=== PATIENT | female | born 1985 | race Asian ===

== ENCOUNTER 2016-10-05 10:58 | Inpatient (IN) | payer BC ==
[2016-10-05] MEDS ORDERED: Ondansetron 4 MG/2 ML SDV IVPUSH PRN ×2 (11:53→17:45)
[2016-10-05] MEDS ORDERED: Sodium Chloride 0.9% 10 ML Syringe FLUSH PRN (11:53)
[2016-10-05] MEDS ORDERED: Nalbuphine 20 MG/1 ML Amp IVPUSH PRN (11:53)
[2016-10-05] MEDS ORDERED: Oxytocin/Lactated Ringers 10 UNIT/1,000 ML BAG IV SCH ×2 (12:00→16:15)
[2016-10-05] MEDS: Lactated Ringers 1,000 ML IV SCH ×3 (16:33→19:48)
--- NOTE | 2016-10-05 17:31 | PCM.PREANE ---
Preanesthetic Assessment - Procedure Proposed Procedure: Laboring Epidural - Anesthesia/Transfusion/Family Hx Anesthesia History: No Prior Anesthesia (wisdom teeth extraction) Type of Anesthesia Reaction: Unknown Family History of Anesthesia Reaction: No Transfusion History: No Prior Transfusion(s) Type of Transfusion Reactions: Reports: Unknown Intubation History: Unknown - Review of Systems General: No Symptoms Pulmonary: No Symptoms Cardiovascular: No Symptoms Gastrointestinal: No symptoms Neurological: No Symptoms Other: Reports: None - Physical Assessment NPO Status Date: 10/05/16 NPO Status Time: 17:00 O2 Sat by Pulse Oximetry: 100 Respiratory Rate: 16 Vital Signs: Last Vital Signs Temp 36.7 C 10/05/16 11:54 Pulse 78 10/05/16 11:54 Resp 16 10/05/16 11:54 BP 114/75 10/05/16 11:54 Pulse Ox 100 10/05/16 11:54 Height: 1.52 m Weight: 66.678 kg ASA Class: 2 Mental Status: Alert & Oriented x3 Airway Class: Mallampati = 2 Dentition: Reports: Normal Dentition Thyro-Mental Finger Breadths: 3 Mouth Opening Finger Breadths: 3 ROM/Head Extension: Full Lungs: Clear to auscultation, Normal respiratory effort Cardiovascular: Regular Rate, Regular Rhythm - Lab Values: Laboratory Last Values WBC 10.76 K/mm3 (3.98-10.04) H 10/05/16 12:15 RBC 4.48 M/mm3 (3.98-5.22) 10/05/16 12:15 Hgb 13.2 gm/L (11.2-15.7) 10/05/16 12:15 Hct 39.4 % (34.1-44.9) 10/05/16 12:15 MCV 87.9 fl (79.4-94.8) 10/05/16 12:15 MCH 29.5 pg (25.6-32.2) 10/05/16 12:15 MCHC 33.5 g/dl (32.2-35.5) 10/05/16 12:15 RDW Std Deviation 58.7 fL (36.4-46.3) H 10/05/16 12:15 Plt Count 114 K/mm3 (182-369) L 10/05/16 12:15 MPV 11.2 fl (9.4-12.3) 10/05/16 12:15 Neut % (Auto) 85.8 % (34.0-71.1) H 10/05/16 12:15 Lymph % (Auto) 7.9 % (19.3-51.7) L 10/05/16 12:15 [place] % (Auto) 5.8 % (4.7-12.5) 10/05/16 12:15 Eos % (Auto) 0.2 (0.7-5.8) L 10/05/16 12:15 Baso % (Auto) 0.1 % (0.1-1.2) 10/05/16 12:15 Neut # (Auto) 9.24 K/mm3 (1.56-6.13) H 10/05/16 12:15 Lymph # (Auto) 0.85 K/mm3 (1.18-3.74) L 10/05/16 12:15 [place] # (Auto) 0.62 K/mm3 (0.24-0.36) H 10/05/16 12:15 Eos # (Auto) 0.02 K/mm3 (0.04-0.36) L 10/05/16 12:15 Baso # (Auto) 0.01 K/mm3 (0.01-0.08) 10/05/16 12:15 Manual Slide Review Normal smear 10/05/16 12:15 - Allergies Allergies/Adverse Reactions: Allergies Allergy/AdvReac Type Severity Reaction Status Date / Time sulfamethoxazole Allergy Rash Verified 10/05/16 12:15 [From Bactrim] trimethoprim [From Bactrim] Allergy Rash Verified 10/05/16 12:15 - Blood Blood Available: No Product(s) Available: None - Anesthesia Plan Pre-Op Medication Ordered: None - Acknowledgements Anesthesia Type Planned: Epidural Pt an Appropriate Candidate for the Planned Anesthesia: Yes Alternatives and Risks of Anesthesia Discussed w Pt/Guardian: Yes Pt/Guardian Understands and Agrees with Anesthesia Plan: Yes 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: - SUBSTANCE USE Smoking Status *Q: Never Smoker Second Hand Smoke Exposure: No Recreational Drug Use History: No - CURRENT (IN HOUSE) MEDS Current Meds: Current Medications Lactated Ringer's (Ringers, Lactated) 1,000 mls @ 100 mls/hr IV ASDIRECTED JOHNNIE Last Admin: 10/05/16 16:34 Dose: 100 mls/hr Oxytocin/Lactated Ringer's (Pitocin In Lr 10 Units/1,000 Ml) 10 unit in 1,000 mls @ 500 mls/hr IV TITRATE JOHNNIE Oxytocin/Lactated Ringer's (Pitocin In Lr 10 Units/1,000 Ml) 10 unit in 1,000 mls @ 12 mls/hr IV TITRATE JOHNNIE; 2 MUNITS/MIN PRN Reason: Protocol Last Titration: 10/05/16 17:11 Dose: 4 munits/min, 24 mls/hr Nalbuphine HCl (Nubain) 10 mg IVPUSH Q2H PRN PRN Reason: Pain (moderate 4-6) Ondansetron HCl (Zofran) 4 mg IVPUSH Q4H PRN PRN Reason: Nausea/Vomiting Sodium Chloride (Saline Flush) 10 ml FLUSH ASDIRECTED PRN PRN Reason: Keep Vein Open
[2016-10-05] MEDS ORDERED: diphenhydrAMINE 50 MG/ML SDV IVPUSH PRN (17:45)
[2016-10-05] MEDS ORDERED: fentaNYL 100 MCG/2 ML SDV EPIDUR PRN (17:45)
[2016-10-05] MEDS ORDERED: ePHEDrine 50 MG/ML SDV IVPUSH PRN (17:45)
--- NOTE | 2016-10-05 19:52 | PCM.LDHP ---
L&D History of Present Illness - General Date of Service: 10/05/16 Admit Problem/Dx: Patient Status Order with Admit Dx/Problem 10/05/16 11:54 Patient Status [ADT] Routine Admission Diagnosis/Problem Admission Diagnosis/Problem Source of Information: Patient History Limitations: Reports: No Limitations - History of Present Illness Introduction:: 31 year old at 42w1d presents with regular painful uterine contractions and bloody show. No cervical change but given advanced gestational age and patient's prior reluctance to induction and currently not scheduled for induction decision made to keep for augmentation of labor. PNC with Dr. Ruiz. No other complications. 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: Social & Family History - Family History Family Medical History: Noncontributory - Tobacco Use Smoking Status *Q: Never Smoker Second Hand Smoke Exposure: No - Caffeine Use Caffeine Use: Reports: None - Recreational Drug Use Recreational Drug Use: No H&P Review of Systems - Review of Systems: Review Of Systems: See Below General: Reports: No Symptoms HEENT: Reports: No Symptoms Pulmonary: Reports: No Symptoms Cardiovascular: Reports: No Symptoms Gastrointestinal: Reports: No Symptoms Genitourinary: Reports: No Symptoms Musculoskeletal: Reports: No Symptoms Skin: Reports: No Symptoms Psychiatric: Reports: No Symptoms Neurological: Reports: No Symptoms Hematologic/Lymphatic: Reports: No Symptoms Immunologic: Reports: No Symptoms L&D Exam - Exam Exam: See Below - Vital Signs Vital Signs: Last Vital Signs Temp 36.7 C 10/05/16 11:54 Pulse 78 10/05/16 11:54 Resp 16 10/05/16 17:45 BP 114/75 10/05/16 11:54 Pulse Ox 100 10/05/16 17:45 Weight: 66.678 kg - OB Specific Contraction Intensity: Mild to Moderate Heart Tones per Min: 140 Heart Rate (FHR) Variability: Moderate (6-25 bmp) - Queen Score Queen Score Cervix Position: Midposition Queen Score Consistency: Medium Queen Score Effacement: 0-30% Queen Score Dilation: 1-2 cm Queen Score 's Station: -3 Queen Score Total: 3 - Exam General: Alert, Oriented HEENT: Conjunctiva Clear Neck: Supple Lungs: Clear to Auscultation, Normal Respiratory Effort Cardiovascular: Regular Rate, Regular Rhythm Abdomen: Normal Bowel Sounds, Soft Genitourinary: Normal external exam Extremities: Normal Inspection Skin: Warm, Dry, Intact Neurological: Cranial Nerves Intact, Reflexes Equal Bilateral - Patient Data Lab Results last 24 hrs: Laboratory Results - last 24 hr 10/05/16 Range/Units 12:15 WBC 10.76 H (3.98-10.04) K/mm3 RBC 4.48 (3.98-5.22) M/mm3 Hgb 13.2 (11.2-15.7) gm/L Hct 39.4 (34.1-44.9) % MCV 87.9 (79.4-94.8) fl MCH 29.5 (25.6-32.2) pg MCHC 33.5 (32.2-35.5) g/dl RDW Std Deviation 58.7 H (36.4-46.3) fL Plt Count 114 L (182-369) K/mm3 MPV 11.2 (9.4-12.3) fl Neut % (Auto) 85.8 H (34.0-71.1) % Lymph % (Auto) 7.9 L (19.3-51.7) % [place] % (Auto) 5.8 (4.7-12.5) % Eos % (Auto) 0.2 L (0.7-5.8) Baso % (Auto) 0.1 (0.1-1.2) % Neut # (Auto) 9.24 H (1.56-6.13) K/mm3 Lymph # (Auto) 0.85 L (1.18-3.74) K/mm3 [place] # (Auto) 0.62 H (0.24-0.36) K/mm3 Eos # (Auto) 0.02 L (0.04-0.36) K/mm3 Baso # (Auto) 0.01 (0.01-0.08) K/mm3 Manual Slide Review Normal smear Result Diagrams: 10/05/16 12:15 - Problem List (1) Post-dates SNOMED Code(s): 70721441 ICD Code: O48.0 - POST-TERM Status: Acute Current Visit: Yes Problem List Initiated/Reviewed/Updated: Yes Orders Last 24hrs: Active Orders 24 hr Category Date Time Status Patient Status [ADT] Routine ADT 10/05/16 11:54 Active Activity as Tolerated [RC] PFP Care 10/05/16 11:54 Active Communication Order [RC] ASDIRECTED Care 10/05/16 11:54 Active Heart Tones [RC] ASDIRECTED Care 10/05/16 11:54 Active Notify Provider [RC] PFP Care 10/05/16 11:54 Active Notify Provider [RC] PRN Care 10/05/16 11:54 Active Peripheral IV Care [RC] . DIRECTED Care 10/05/16 11:54 Active Vital Signs [RC] PER UNIT ROUTINE Care 10/05/16 11:54 Active Regular Diet [DIET] Diet 10/05/16 Dinner Active Bupivacaine/fentaNYL/NS [fentaNYL/Bupivacaine/NS 2 MCG- Med 10/05/16 17:45 Active 0.125% 100 ML] 100 ml EPIDUR ASDIRECTED Lactated Ringers [Ringers, Lactated] 1,000 ml Med 10/05/16 12:00 Active IV ASDIRECTED Nalbuphine [Nubain] Med 10/05/16 11:53 Active 10 mg IVPUSH Q2H PRN Ondansetron [Zofran] Med 10/05/16 17:45 Active 4 mg IVPUSH ONETIME PRN Ondansetron [Zofran] Med 10/05/16 11:53 Active 4 mg IVPUSH Q4H PRN Oxytocin/Lactated Ringers [Pitocin in LR 10 Units/1,000 Med 10/05/16 12:00 Active ML] 10 unit in 1,000 ml IV TITRATE Oxytocin/Lactated Ringers [Pitocin in LR 10 Units/1,000 Med 10/05/16 16:15 Active ML] 10 unit in 1,000 ml IV TITRATE Sodium Chloride 0.9% [Saline Flush] Med 10/05/16 11:53 Active 10 ml FLUSH ASDIRECTED PRN diphenhydrAMINE [Benadryl] Med 10/05/16 17:45 Active 25 mg IVPUSH Q6H PRN ePHEDrine [ePHEDrine Sulfate] Med 10/05/16 17:45 Active 5 mg IVPUSH ASDIRECTED PRN fentaNYL [Sublimaze] Med 10/05/16 17:45 Active 100 mcg EPIDUR Q3H PRN Electronic Heart Tones Ext w TOCO [WOMSER] Oth 10/05/16 11:54 Ordered Routine Electronic Heart Tones Internal [WOMSER] Per Unit Oth 10/05/16 11:54 Ordered Routine Peripheral IV Insertion Adult [OM.PC] Routine Oth 10/05/16 11:54 Ordered Resuscitation Status Routine Resus Stat 10/05/16 11:53 Ordered Medication Orders Diphenhydramine HCl (Benadryl) 25 mg IVPUSH Q6H PRN PRN Reason: Pruritis Ephedrine Sulfate (Ephedrine Sulfate) 5 mg IVPUSH ASDIRECTED PRN PRN Reason: Hypotension Fentanyl (Sublimaze) 100 mcg EPIDUR Q3H PRN PRN Reason: Pain Fentanyl/Bupivacaine HCl (Fentanyl/Bupivacaine/Ns 2 Mcg-0.125% 100 Ml) 100 ml EPIDUR ASDIRECTED JOHNNIE Lactated Ringer's (Ringers, Lactated) 1,000 mls @ 100 mls/hr IV ASDIRECTED JOHNNIE Last Admin: 10/05/16 16:34 Dose: 100 mls/hr Infusion: 10/05/16 16:34 Dose: 500 mls/hr Admin: 10/05/16 16:33 Dose: 500 mls/hr Oxytocin/Lactated Ringer's (Pitocin In Lr 10 Units/1,000 Ml) 10 unit in 1,000 mls @ 500 mls/hr IV TITRATE JOHNNIE Oxytocin/Lactated Ringer's (Pitocin In Lr 10 Units/1,000 Ml) 10 unit in 1,000 mls @ 12 mls/hr IV TITRATE JOHNNIE; 2 MUNITS/MIN PRN Reason: Protocol Last Titration: 10/05/16 18:21 Dose: 6 munits/min, 36 mls/hr Titration: 10/05/16 17:11 Dose: 4 munits/min, 24 mls/hr Admin: 10/05/16 16:35 Dose: 2 munits/min, 12 mls/hr Nalbuphine HCl (Nubain) 10 mg IVPUSH Q2H PRN PRN Reason: Pain (moderate 4-6) Ondansetron HCl (Zofran) 4 mg IVPUSH Q4H PRN PRN Reason: Nausea/Vomiting Ondansetron HCl (Zofran) 4 mg IVPUSH ONETIME PRN PRN Reason: Nausea/Vomiting Sodium Chloride (Saline Flush) 10 ml FLUSH ASDIRECTED PRN PRN Reason: Keep Vein Open Assessment/Plan Comment:: 31 year old primigravid with early labor and postdates -Admit -Augment -AROM prn -Anesthesia per patient request.
[2016-10-06] MEDS: Bupivacaine/fentaNYL/NS 100 ML Bag EPIDUR SCH ×3 (00:08→13:03)
[2016-10-06] MEDS ORDERED: Clindamycin Phosphate 900 MG in Sodium Chloride 0.9% 100 ML IV ONE (03:29)
[2016-10-06] MEDS ORDERED: Clindamycin Phosphate 900 MG/6 ML AdvVial ONE (03:41)
[2016-10-06] MEDS ORDERED: Sodium Chloride 0.9% 100 ML ONE (03:41)
[2016-10-06] MEDS: Lactated Ringers 1,000 ML IV SCH ×5 (03:47→12:49)
--- NOTE | 2016-10-06 07:02 | PCM.PNLD ---
Labor Progress Note - VS & Meds Vital Signs: Last Vital Signs Temp 36.7 C 10/05/16 11:54 Pulse 78 10/05/16 11:54 Resp 16 10/05/16 17:45 BP 114/75 10/05/16 11:54 Pulse Ox 100 10/05/16 17:45 Active Medications: Current Medications Diphenhydramine HCl (Benadryl) 25 mg IVPUSH Q6H PRN PRN Reason: Pruritis Ephedrine Sulfate (Ephedrine Sulfate) 5 mg IVPUSH ASDIRECTED PRN PRN Reason: Hypotension Fentanyl (Sublimaze) 100 mcg EPIDUR Q3H PRN PRN Reason: Pain Last Admin: 10/06/16 00:08 Dose: 100 mcg Fentanyl/Bupivacaine HCl (Fentanyl/Bupivacaine/Ns 2 Mcg-0.125% 100 Ml) 100 ml EPIDUR ASDIRECTED JOHNNIE Last Admin: 10/06/16 00:08 Dose: 100 ml Lactated Ringer's (Ringers, Lactated) 1,000 mls @ 100 mls/hr IV ASDIRECTED JOHNNIE Last Admin: 10/06/16 05:00 Dose: 500 mls/hr Oxytocin/Lactated Ringer's (Pitocin In Lr 10 Units/1,000 Ml) 10 unit in 1,000 mls @ 500 mls/hr IV TITRATE JOHNNIE Oxytocin/Lactated Ringer's (Pitocin In Lr 10 Units/1,000 Ml) 10 unit in 1,000 mls @ 12 mls/hr IV TITRATE JOHNNIE; 2 MUNITS/MIN PRN Reason: Protocol Last Titration: 10/06/16 05:58 Dose: 0 munits/min, 0 mls/hr Nalbuphine HCl (Nubain) 10 mg IVPUSH Q2H PRN PRN Reason: Pain (moderate 4-6) Ondansetron HCl (Zofran) 4 mg IVPUSH Q4H PRN PRN Reason: Nausea/Vomiting Ondansetron HCl (Zofran) 4 mg IVPUSH ONETIME PRN PRN Reason: Nausea/Vomiting Sodium Chloride (Saline Flush) 10 ml FLUSH ASDIRECTED PRN PRN Reason: Keep Vein Open Discontinued Medications Clindamycin Phosphate (Cleocin) Confirm Administered Dose 900 mg .ROUTE .STK- MED ONE Stop: 10/06/16 03:42 Last Admin: 10/06/16 03:56 Dose: Not Given Clindamycin Phosphate 900 mg/ (Sodium Chloride) 106 mls @ 100 mls/hr IV ONETIME ONE Stop: 10/06/16 04:32 Last Admin: 10/06/16 03:47 Dose: 100 mls/hr Gentamicin Sulfate 100 mg/ (Sodium Chloride) 102.5 mls @ 200 mls/hr IV ONETIME ONE Stop: 10/06/16 03:58 Last Admin: 10/06/16 03:55 Dose: 200 mls/hr Sodium Chloride (Normal Saline) Confirm Administered Dose 100 mls @ as directed .ROUTE .STK-MED ONE Stop: 10/06/16 03:42 Last Admin: 10/06/16 03:56 Dose: Not Given - Uterine Contractions Contraction Intensity: Mild to Moderate - Monitoring Heart Rate (FHR) Variability: Moderate (6-25 bmp) Decelerations: None - Vaginal Exam Dilation (cm): 2 Station: Ballotable Cervical Position: Posterior - Labor Progress (Free Text) Labor Progress: Minimal progress. Tolerating contractions.
--- NOTE | 2016-10-06 07:05 | PCM.PNLD ---
Labor Progress Note - VS & Meds Vital Signs: Last Vital Signs Temp 36.7 C 10/05/16 11:54 Pulse 78 10/05/16 11:54 Resp 16 10/05/16 17:45 BP 114/75 10/05/16 11:54 Pulse Ox 100 10/05/16 17:45 Active Medications: Current Medications Diphenhydramine HCl (Benadryl) 25 mg IVPUSH Q6H PRN PRN Reason: Pruritis Ephedrine Sulfate (Ephedrine Sulfate) 5 mg IVPUSH ASDIRECTED PRN PRN Reason: Hypotension Fentanyl (Sublimaze) 100 mcg EPIDUR Q3H PRN PRN Reason: Pain Last Admin: 10/06/16 00:08 Dose: 100 mcg Fentanyl/Bupivacaine HCl (Fentanyl/Bupivacaine/Ns 2 Mcg-0.125% 100 Ml) 100 ml EPIDUR ASDIRECTED JOHNNIE Last Admin: 10/06/16 07:01 Dose: 100 ml Lactated Ringer's (Ringers, Lactated) 1,000 mls @ 100 mls/hr IV ASDIRECTED JOHNNIE Last Admin: 10/06/16 05:00 Dose: 500 mls/hr Oxytocin/Lactated Ringer's (Pitocin In Lr 10 Units/1,000 Ml) 10 unit in 1,000 mls @ 500 mls/hr IV TITRATE JOHNNIE Oxytocin/Lactated Ringer's (Pitocin In Lr 10 Units/1,000 Ml) 10 unit in 1,000 mls @ 12 mls/hr IV TITRATE JOHNNIE; 2 MUNITS/MIN PRN Reason: Protocol Last Titration: 10/06/16 05:58 Dose: 0 munits/min, 0 mls/hr Nalbuphine HCl (Nubain) 10 mg IVPUSH Q2H PRN PRN Reason: Pain (moderate 4-6) Ondansetron HCl (Zofran) 4 mg IVPUSH Q4H PRN PRN Reason: Nausea/Vomiting Ondansetron HCl (Zofran) 4 mg IVPUSH ONETIME PRN PRN Reason: Nausea/Vomiting Sodium Chloride (Saline Flush) 10 ml FLUSH ASDIRECTED PRN PRN Reason: Keep Vein Open Discontinued Medications Clindamycin Phosphate (Cleocin) Confirm Administered Dose 900 mg .ROUTE .STK- MED ONE Stop: 10/06/16 03:42 Last Admin: 10/06/16 03:56 Dose: Not Given Clindamycin Phosphate 900 mg/ (Sodium Chloride) 106 mls @ 100 mls/hr IV ONETIME ONE Stop: 10/06/16 04:32 Last Admin: 10/06/16 03:47 Dose: 100 mls/hr Gentamicin Sulfate 100 mg/ (Sodium Chloride) 102.5 mls @ 200 mls/hr IV ONETIME ONE Stop: 10/06/16 03:58 Last Admin: 10/06/16 03:55 Dose: 200 mls/hr Sodium Chloride (Normal Saline) Confirm Administered Dose 100 mls @ as directed .ROUTE .STK-MED ONE Stop: 10/06/16 03:42 Last Admin: 10/06/16 03:56 Dose: Not Given - Uterine Contractions Contraction Intensity: Mild to Moderate - Monitoring Heart Rate (FHR) Variability: Moderate (6-25 bmp) Decelerations: Early, Intermittent (<50% x 20 min) Strip Review: Category II - Vaginal Exam Dilation (cm): 2 Station: Ballotable Cervical Position: Posterior - Labor Progress (Free Text) Labor Progress: Elevated temperature to 102.2. Diagnosis of chorioamnionitis. Start antibiotics. Recommend proceeding to delivery with active management of labor.
--- NOTE | 2016-10-06 07:08 | PCM.PNLD ---
Labor Progress Note - VS & Meds Vital Signs: Last Vital Signs Temp 36.7 C 10/05/16 11:54 Pulse 78 10/05/16 11:54 Resp 16 10/05/16 17:45 BP 114/75 10/05/16 11:54 Pulse Ox 100 10/05/16 17:45 Active Medications: Current Medications Diphenhydramine HCl (Benadryl) 25 mg IVPUSH Q6H PRN PRN Reason: Pruritis Ephedrine Sulfate (Ephedrine Sulfate) 5 mg IVPUSH ASDIRECTED PRN PRN Reason: Hypotension Fentanyl (Sublimaze) 100 mcg EPIDUR Q3H PRN PRN Reason: Pain Last Admin: 10/06/16 00:08 Dose: 100 mcg Fentanyl/Bupivacaine HCl (Fentanyl/Bupivacaine/Ns 2 Mcg-0.125% 100 Ml) 100 ml EPIDUR ASDIRECTED JOHNNIE Last Admin: 10/06/16 07:01 Dose: 100 ml Lactated Ringer's (Ringers, Lactated) 1,000 mls @ 100 mls/hr IV ASDIRECTED JOHNNIE Last Admin: 10/06/16 05:00 Dose: 500 mls/hr Oxytocin/Lactated Ringer's (Pitocin In Lr 10 Units/1,000 Ml) 10 unit in 1,000 mls @ 500 mls/hr IV TITRATE JOHNNIE Oxytocin/Lactated Ringer's (Pitocin In Lr 10 Units/1,000 Ml) 10 unit in 1,000 mls @ 12 mls/hr IV TITRATE JOHNNIE; 2 MUNITS/MIN PRN Reason: Protocol Last Titration: 10/06/16 05:58 Dose: 0 munits/min, 0 mls/hr Nalbuphine HCl (Nubain) 10 mg IVPUSH Q2H PRN PRN Reason: Pain (moderate 4-6) Ondansetron HCl (Zofran) 4 mg IVPUSH Q4H PRN PRN Reason: Nausea/Vomiting Ondansetron HCl (Zofran) 4 mg IVPUSH ONETIME PRN PRN Reason: Nausea/Vomiting Sodium Chloride (Saline Flush) 10 ml FLUSH ASDIRECTED PRN PRN Reason: Keep Vein Open Discontinued Medications Clindamycin Phosphate (Cleocin) Confirm Administered Dose 900 mg .ROUTE .STK- MED ONE Stop: 10/06/16 03:42 Last Admin: 10/06/16 03:56 Dose: Not Given Clindamycin Phosphate 900 mg/ (Sodium Chloride) 106 mls @ 100 mls/hr IV ONETIME ONE Stop: 10/06/16 04:32 Last Admin: 10/06/16 03:47 Dose: 100 mls/hr Gentamicin Sulfate 100 mg/ (Sodium Chloride) 102.5 mls @ 200 mls/hr IV ONETIME ONE Stop: 10/06/16 03:58 Last Admin: 10/06/16 03:55 Dose: 200 mls/hr Sodium Chloride (Normal Saline) Confirm Administered Dose 100 mls @ as directed .ROUTE .STK-MED ONE Stop: 10/06/16 03:42 Last Admin: 10/06/16 03:56 Dose: Not Given - Uterine Contractions Uterine Monitoring Mode: IUPC Contraction Intensity: Mild to Moderate - Monitoring Heart Rate (FHR) Variability: Moderate (6-25 bmp) Decelerations: Early, Intermittent (<50% x 20 min) Strip Review: Category II - Vaginal Exam Dilation (cm): 6 Station: -2 Cervical Position: Posterior - Labor Progress (Free Text) Labor Progress: Minimal progress. 5-6 cm since midnight. Chorioamnionitis. Recommend which they do not want at this time. Placed IUPC. Currently refusing pitocin. Recommend pitocin if MVUs not adequate.
[2016-10-06] MEDS ORDERED: Clindamycin Phosphate 900 MG in Sodium Chloride 0.9% 100 ML IV SCH (12:35)
[2016-10-06] MEDS ORDERED: Witch Hazel Medicated Pads 100/Jar TOP PRN (19:47)
[2016-10-06] MEDS ORDERED: Benzocaine/Menthol 20%-0.5% Spray 56 GM Canister TOP PRN (19:47)
[2016-10-06] MEDS ORDERED: Docusate Sodium 100 MG Cap PO PRN (19:47)
[2016-10-06] MEDS ORDERED: Lanolin 100% Cream 7 GM Tube TOP PRN (19:47)
[2016-10-06] MEDS ORDERED: Lactated Ringers 1,000 ML ONE (20:31)
[2016-10-06] MEDS ORDERED: Lactated Ringers 1,000 ML IV SCH (21:30)
[2016-10-06] MEDS: Ibuprofen 600 MG Tab PO PRN (22:22)
--- NOTE | 2016-10-07 08:28 | PCM.PNPP ---
- General Info Date of Service: 10/07/16 Subjective Update: Somewhat weak. PPD1. Anemia. Tired. MInimal locia now. Functional Status: Reports: pain controlled - Review of Systems General: Reports: Weakness HEENT: Reports: no symptoms Pulmonary: Reports: no symptoms Cardiovascular: Reports: No Symptoms Gastrointestinal: Reports: No symptoms Genitourinary: Reports: no symptoms Musculoskeletal: Reports: no symptoms Skin: Reports: no symptoms Neurological: Reports: No Symptoms Psychiatric: Reports: no symptoms - General Info Date of Service: 10/07/16 - Patient Data Vital Signs - most recent: Last Vital Signs Temp 36.4 C 10/07/16 04:08 Pulse 75 10/07/16 04:08 Resp 13 10/07/16 04:08 BP 107/77 10/07/16 04:08 Pulse Ox 93 L 10/07/16 04:08 Weight - most recent: 66.678 kg Lab Results - last 24 hrs: Laboratory Results - last 24 hr 10/07/16 Range/Units 07:00 WBC 23.17 H (3.98-10.04) K/mm3 RBC 3.03 L (3.98-5.22) M/mm3 Hgb 8.9 L (11.2-15.7) gm/L Hct 26.8 L (34.1-44.9) % MCV 88.4 (79.4-94.8) fl MCH 29.4 (25.6-32.2) pg MCHC 33.2 (32.2-35.5) g/dl RDW Std Deviation 58.8 H (36.4-46.3) fL Plt Count 99 L (182-369) K/mm3 MPV 11.1 (9.4-12.3) fl Med Orders - Current: Current Medications Benzocaine/Menthol (Dermoplast Pain Relief [place]) 0 gm TOP ASDIRECTED PRN PRN Reason: Perineal Comfort Measure Last Admin: 10/06/16 22:21 Dose: 1 applic Docusate Sodium (Colace) 100 mg PO BID PRN PRN Reason: Constipation Emollient Ointment (Lansinoh Hpa) 0 gm TOP ASDIRECTED PRN PRN Reason: Sore Nipples Ibuprofen (Motrin) 600 mg PO Q6H PRN PRN Reason: Mild pain or fever Last Admin: 10/06/16 22:22 Dose: 600 mg Witnegar Joanne (Tucks) 1 pad TOP ASDIRECTED PRN PRN Reason: Hemorrhoid pain Last Admin: 10/06/16 22:22 Dose: 1 applic Discontinued Medications Clindamycin Phosphate (Cleocin) Confirm Administered Dose 900 mg .ROUTE .STK- MED ONE Stop: 10/06/16 03:42 Last Admin: 10/06/16 03:56 Dose: Not Given Diphenhydramine HCl (Benadryl) 25 mg IVPUSH Q6H PRN PRN Reason: Pruritis Ephedrine Sulfate (Ephedrine Sulfate) 5 mg IVPUSH ASDIRECTED PRN PRN Reason: Hypotension Fentanyl (Sublimaze) 100 mcg EPIDUR Q3H PRN PRN Reason: Pain Last Admin: 10/06/16 00:08 Dose: 100 mcg Fentanyl/Bupivacaine HCl (Fentanyl/Bupivacaine/Ns 2 Mcg-0.125% 100 Ml) 100 ml EPIDUR ASDIRECTED JOHNNIE Last Admin: 10/06/16 13:03 Dose: 100 ml Lactated Ringer's (Ringers, Lactated) 1,000 mls @ 100 mls/hr IV ASDIRECTED JOHNNIE Last Admin: 10/06/16 12:49 Dose: 500 mls/hr Oxytocin/Lactated Ringer's (Pitocin In Lr 10 Units/1,000 Ml) 10 unit in 1,000 mls @ 500 mls/hr IV TITRATE JOHNNIE Last Admin: 10/06/16 18:25 Dose: 500 mls/hr Oxytocin/Lactated Ringer's (Pitocin In Lr 10 Units/1,000 Ml) 10 unit in 1,000 mls @ 12 mls/hr IV TITRATE JOHNNIE; 2 MUNITS/MIN PRN Reason: Protocol Last Titration: 10/06/16 17:44 Dose: 12 munits/min, 72 mls/hr Clindamycin Phosphate 900 mg/ (Sodium Chloride) 106 mls @ 100 mls/hr IV ONETIME ONE Stop: 10/06/16 04:32 Last Admin: 10/06/16 03:47 Dose: 100 mls/hr Gentamicin Sulfate 100 mg/ (Sodium Chloride) 102.5 mls @ 200 mls/hr IV ONETIME ONE Stop: 10/06/16 03:58 Last Admin: 10/06/16 03:55 Dose: 200 mls/hr Sodium Chloride (Normal Saline) Confirm Administered Dose 100 mls @ as directed .ROUTE .STK-MED ONE Stop: 10/06/16 03:42 Last Admin: 10/06/16 03:56 Dose: Not Given Clindamycin Phosphate 900 mg/ (Sodium Chloride) 106 mls @ 100 mls/hr IV Q12H [facility] Last Admin: 10/06/16 12:46 Dose: 100 mls/hr Gentamicin Sulfate 100 mg/ (Sodium Chloride) 102.5 mls @ 200 mls/hr IV Q12H [facility] Last Admin: 10/06/16 13:31 Dose: 200 mls/hr Lactated Ringer's (Ringers, Lactated) Confirm Administered Dose 1,000 mls @ as directed .ROUTE .SocialBrowseK-MED ONE Stop: 10/06/16 20:32 Lactated Ringer's (Ringers, Lactated) 1,000 mls @ 500 mls/hr IV ASDIRECTED [facility] Stop: 10/06/16 23:29 Last Admin: 10/06/16 20:30 Dose: 500 mls/hr Nalbuphine HCl (Nubain) 10 mg IVPUSH Q2H PRN PRN Reason: Pain (moderate 4-6) Ondansetron HCl (Zofran) 4 mg IVPUSH Q4H PRN PRN Reason: Nausea/Vomiting Ondansetron HCl (Zofran) 4 mg IVPUSH ONETIME PRN PRN Reason: Nausea/Vomiting Sodium Chloride (Saline Flush) 10 ml FLUSH ASDIRECTED PRN PRN Reason: Keep Vein Open - Infant Interaction Support Person: - Recovery Exam Fundal Tone: Firm Fundal Level: 1 Fingerbreadths Above Umbilicus Fundal Placement: Midline Lochia Amount: Small Lochia Color: Rubra/Red Perineum Description: Ecchymotic, Edematous Episiotomy/Laceration: Approximated Bladder Status: Voiding Urinary Elimination: Voided - Exam HEENT: Pupils equal Neck: supple Lungs: Clear to auscultation, Normal respiratory effort Cardiovascular: Regular Rate, Regular Rhythm Abdomen: bowel sounds present, soft, no tenderness, no distension Extremities: no edema Skin: warm, dry, intact, other (pale) Wound/Incisions: healing well Neurological: no new focal deficit Psy/Mental Status: alert, normal affect, normal mood - Problem List & Annotations (1) Post-dates SNOMED Code(s): 53066279 Code(s): O48.0 - POST-TERM Status: Acute Current Visit: Yes - Problem List Review Problem List Initiated/Reviewed/Updated: Yes - My Orders Last 24 Hours: My Active Orders 10/06/16 19:47 Activity as Tolerated [RC] PER UNIT ROUTINE Vital Signs [RC] 20,04,12 Benzocaine/Menthol [Dermoplast Pain Relief [place]] See Dose Instructions TOP ASDIRECTED PRN Docusate Sodium [Colace] 100 mg PO BID PRN Ibuprofen [Motrin] 600 mg PO Q6H PRN Lanolin [Lansinoh HPA] See Dose Instructions TOP ASDIRECTED PRN Witch Joanne [Tucks] 1 pad TOP ASDIRECTED PRN Assess Lochia [WOMSER] Per Unit Routine Assess Uterine Involution [WOMSER] Per Unit Routine Breast Pump [WOMSER] Per Unit Routine Heat Therapy [OM.PC] PRN Medication Administration Instruction [OM.PC] Routine Perineal Care [OM.PC] Per Unit Routine Sitz Bath [OM.PC] Per Unit Routine 10/07/16 12:00 CBC WITH AUTO DIFF [HEME] Routine TYPE AND SCREEN [BBK] Routine 10/07/16 19:47 Heat Therapy [OM.PC] PRN - Assessment Assessment:: PPD1 s/p Anemia -will see how she tolerates today - Plan Plan:: 31 year old primigravid with early labor and postdates -Admit -Augment -AROM prn -Anesthesia per patient request.
--- NOTE | 2016-10-07 08:49 | PCM48HPAN ---
Post Anesthesia Note - EVALUATION WITHIN 48HRS OF ANESTHETIC Vital Signs in Normal Range: Yes Patient Participated in Evaluation: Yes Respiratory Function Stable: Yes Airway Patent: Yes Cardiovascular Function Stable: Yes Hydration Status Stable: Yes Pain Control Satisfactory: Yes Nausea and Vomiting Control Satisfactory: Yes Mental Status Recovered: Yes - COMMENTS/OBSERVATIONS Free Text/Narrative:: Pt reports doing well and that epidural worked well. voiced concern over developing a PDPH, but reports no headache as of now. up to restroom without problems. reports return of normal strength and sensation of both LE. taking p.o., no N/V, F/C. I explained what a PHPD would be like and reassured her that most pts do not experience PDPH after epidural.
[2016-10-07] MEDS: Ibuprofen 600 MG Tab PO PRN (10:44)
[2016-10-07] MEDS: Docusate Sodium 100 MG Cap PO SCH (10:46)
[2016-10-08] MEDS: Docusate Sodium 100 MG Cap PO SCH (09:29)
[2016-10-08] MEDS: Ibuprofen 600 MG Tab PO PRN (09:29)
[2016-10-08 09:42] VITALS: BP 111/76
--- NOTE | 2016-10-10 06:18 | PCM.DCSUM1 ---
Discharge Summary - Hospital Course Brief History: Admitted in labor. Slow progress with occasionally category II monitoring. Eventual chorioamnionitis. . - Discharge Data Discharge Date: 10/07/16 Discharge Disposition: Home, Self-Care 01 Condition: Good - Discharge Diagnosis/Problem(s) (1) Post-dates SNOMED Code(s): 59528642 ICD Code: O48.0 - POST-TERM Status: Acute - Patient Instructions Diet: Regular Diet as Tolerated Activity: As Tolerated Driving: May Drive Today Showering/Bathing: May Shower Notify Provider of: Fever, Increased Pain - Discharge Plan Home Medications: Home Meds PNV95/Ferrous Fumarate/FA [ Vitamin Tablet] 1 each PO DAILY 10/05/16 [ History] Benzocaine/Menthol [Dermoplast Pain Relief [place]] 56 gm TOP ASDIRECTED PRN #0 canister 10/08/16 [Rx] Docusate Sodium [Colace] 100 mg PO BID PRN #0 cap 10/08/16 [Rx] Ibuprofen [IJD: Ibuprofen] 600 mg PO Q6H PRN #0 tablet 10/08/16 [Rx] Witch Joanne [Tucks] 1 pad TOP ASDIRECTED PRN #0 pad 10/08/16 [Rx] Patient Handouts: Depression and Baby Blues, Home Care Instructions for Mom Referrals: Baltazar Ruiz MD [Primary Care Provider] - 11/17/16 11:00 am (Appointment with Dr. Ruiz for 6 week follow up scheduled for November 17 @ 11:00am.) - Discharge Summary/Plan Comment DC Time >30 min.: No - General Info Date of Service: 10/07/16 Functional Status: Reports: pain controlled - Review of Systems General: Reports: No Symptoms HEENT: Reports: no symptoms Pulmonary: Reports: no symptoms Cardiovascular: Reports: No Symptoms Gastrointestinal: Reports: No symptoms Genitourinary: Reports: no symptoms Musculoskeletal: Reports: no symptoms Skin: Reports: no symptoms Neurological: Reports: No Symptoms Psychiatric: Reports: no symptoms - Patient Data Vitals - Most Recent: Last Vital Signs Temp 36.8 C 10/08/16 09:25 Pulse 82 10/08/16 09:25 Resp 16 10/08/16 09:25 BP 111/76 10/08/16 09:25 Pulse Ox 96 10/08/16 09:25 Weight - Most Recent: 66.678 kg Med Orders - Current: Current Medications Discontinued Medications Benzocaine/Menthol (Dermoplast Pain Relief [place]) 0 gm TOP ASDIRECTED PRN PRN Reason: Perineal Comfort Measure Last Admin: 10/06/16 22:21 Dose: 1 applic Clindamycin Phosphate (Cleocin) Confirm Administered Dose 900 mg .ROUTE .STK- MED ONE Stop: 10/06/16 03:42 Last Admin: 10/06/16 03:56 Dose: Not Given Diphenhydramine HCl (Benadryl) 25 mg IVPUSH Q6H PRN PRN Reason: Pruritis Docusate Sodium (Colace) 100 mg PO BID PRN PRN Reason: Constipation Docusate Sodium (Colace) 100 mg PO DAILY JOHNNIE Last Admin: 10/08/16 09:29 Dose: 100 mg Emollient Ointment (Lansinoh Hpa) 0 gm TOP ASDIRECTED PRN PRN Reason: Sore Nipples Ephedrine Sulfate (Ephedrine Sulfate) 5 mg IVPUSH ASDIRECTED PRN PRN Reason: Hypotension Fentanyl (Sublimaze) 100 mcg EPIDUR Q3H PRN PRN Reason: Pain Last Admin: 10/06/16 00:08 Dose: 100 mcg Fentanyl/Bupivacaine HCl (Fentanyl/Bupivacaine/Ns 2 Mcg-0.125% 100 Ml) 100 ml EPIDUR ASDIRECTED JOHNNIE Last Admin: 10/06/16 13:03 Dose: 100 ml Lactated Ringer's (Ringers, Lactated) 1,000 mls @ 100 mls/hr IV ASDIRECTED JOHNNIE Last Admin: 10/06/16 12:49 Dose: 500 mls/hr Oxytocin/Lactated Ringer's (Pitocin In Lr 10 Units/1,000 Ml) 10 unit in 1,000 mls @ 500 mls/hr IV TITRATE JOHNNIE Last Admin: 10/06/16 18:25 Dose: 500 mls/hr Oxytocin/Lactated Ringer's (Pitocin In Lr 10 Units/1,000 Ml) 10 unit in 1,000 mls @ 12 mls/hr IV TITRATE JOHNNIE; 2 MUNITS/MIN PRN Reason: Protocol Last Titration: 10/06/16 17:44 Dose: 12 munits/min, 72 mls/hr Clindamycin Phosphate 900 mg/ (Sodium Chloride) 106 mls @ 100 mls/hr IV ONETIME ONE Stop: 10/06/16 04:32 Last Admin: 10/06/16 03:47 Dose: 100 mls/hr Gentamicin Sulfate 100 mg/ (Sodium Chloride) 102.5 mls @ 200 mls/hr IV ONETIME ONE Stop: 10/06/16 03:58 Last Admin: 10/06/16 03:55 Dose: 200 mls/hr Sodium Chloride (Normal Saline) Confirm Administered Dose 100 mls @ as directed .ROUTE .STK-MED ONE Stop: 10/06/16 03:42 Last Admin: 10/06/16 03:56 Dose: Not Given Clindamycin Phosphate 900 mg/ (Sodium Chloride) 106 mls @ 100 mls/hr IV Q12H [facility] Last Admin: 10/06/16 12:46 Dose: 100 mls/hr Gentamicin Sulfate 100 mg/ (Sodium Chloride) 102.5 mls @ 200 mls/hr IV Q12H [facility] Last Admin: 10/06/16 13:31 Dose: 200 mls/hr Lactated Ringer's (Ringers, Lactated) Confirm Administered Dose 1,000 mls @ as directed .ROUTE .STK-MED ONE Stop: 10/06/16 20:32 Last Admin: 10/07/16 10:31 Dose: Not Given Lactated Ringer's (Ringers, Lactated) 1,000 mls @ 500 mls/hr IV ASDIRECTED [facility] Stop: 10/06/16 23:29 Last Admin: 10/06/16 20:30 Dose: 500 mls/hr Ibuprofen (Motrin) 600 mg PO Q6H PRN PRN Reason: Mild pain or fever Last Admin: 10/08/16 09:29 Dose: 600 mg Nalbuphine HCl (Nubain) 10 mg IVPUSH Q2H PRN PRN Reason: Pain (moderate 4-6) Ondansetron HCl (Zofran) 4 mg IVPUSH Q4H PRN PRN Reason: Nausea/Vomiting Ondansetron HCl (Zofran) 4 mg IVPUSH ONETIME PRN PRN Reason: Nausea/Vomiting Sodium Chloride (Saline Flush) 10 ml FLUSH ASDIRECTED PRN PRN Reason: Keep Vein Open Witnegar Rubio (Tucks) 1 pad TOP ASDIRECTED PRN PRN Reason: Hemorrhoid pain Last Admin: 10/06/16 22:22 Dose: 1 applic - Exam General: Reports: alert, oriented HEENT: Reports: Pupils equal, Pupils reactive, EOMI, Mucous membr. moist/pink Neck: Reports: supple Lungs: Reports: Clear to auscultation, Normal respiratory effort Cardiovascular: Reports: Regular Rate, Regular Rhythm Abdomen: Reports: bowel sounds present, soft, no tenderness, no distension (Female) Exam: Normal External Exam, Normal Speculum Exam, Normal Bimanual Exam Back Exam: Reports: Normal Inspection, Full Range of Motion Extremities: Reports: no edema, normal pulses Skin: Reports: warm, dry, intact Wound/Incisions: Reports: healing well Neurological: Reports: no new focal deficit Psy/Mental Status: Reports: alert, normal affect, normal mood *Q Meaningful Use (DIS) - VTE *Q VTE Criteria *Q: - Stroke *Q Stroke Criteria *Q: - AMI *Q AMI Criteria *Q:
== END 2016-10-08 14:45 | disposition home or self-care (01) | DRG 542 ==
LOC: JD.OBCHECK 10:58 → JD.OB 11:03 → JD.OBCHECK 11:53 → JD.OB 11:54 → OBSVTOIN 10-06 18:10
PROVIDERS: ADMIT Obstetrics & Gynecology; ATTEND Obstetrics & Gynecology
PROC: 10E0XZZ Delivery of Products of Conception, External Approach (ICD-10-PCS; principal; 2016-10-06)
PROC: 10907ZC Drainage of Amniotic Fluid, Therapeutic from Products of Conception, Via Natural or Artificial Opening (ICD-10-PCS; 2016-10-06)
PROC: 0DQR0ZZ Repair Anal Sphincter, Open Approach (ICD-10-PCS; 2016-10-06)
PROC: 00HU33Z Insertion of Infusion Device into Spinal Canal, Percutaneous Approach (ICD-10-PCS; 2016-10-06)
DX: O48.0 Post-term pregnancy (principal); Z3A.42 42 weeks gestation of pregnancy; O41.1290 Chorioamnionitis, unspecified trimester, not applicable or unspecified; O77.0 Labor and delivery complicated by meconium in amniotic fluid; O70.20 Third degree perineal laceration during delivery, unspecified; Z37.0 Single live birth; O90.81 Anemia of the puerperium; Z88.8 Allergy status to other drugs, medicaments and biological substances
CPT/HCPCS: 01967; 36415; 85025; 85027; 86850; 86900; 86901; 88307; 88307-26; A9270-GY; J1580; J2590; J3010; J7030; J7120